=== PATIENT | female | born 1985 | race Caucasian/White ===

== ENCOUNTER 2024-10-10 11:02 | Emergency (ER) | payer BC, SELFPAY ==
[2024-10-10 11:10] VITALS: BP 157/90; PULSE 115; RESP 18; TEMP 36.8; O2SAT 99
--- OUTSIDE RECORDS SUMMARY | 2024-10-10 11:12 | XMS_ITS | Clinical Summary ---
Author Organization [facility] Address [address] [place] [address] Care Team Providers Care Circulation Librarian Name Role Phone Rafael Gil MD Primary Care Provider Source Comments [facility],non-owned Affiliates and Associated Physician Practices is amultiple site organization consisting of ambulatory clinics and hospital sitesin [place], [place] and [place]. This disclosure is being madepursuant to the Care Everywhere program and may not contain all information available regarding this patient. Last updated 18.[facility] [employer] Allergies No known active allergies Medications * Be aware that medications may not be up to date on this document. Alwaysverify current medications with the patient. ibuprofen (MOTRIN) 600 MG tablet Take 1 Tab by mouth every 6 hours as needed for Pain. 20 0 05/06/2009 Active norethindrone-et hinyl estradiol (ORTHO-NOVUM , 28,) 1-35 MG-MCG tablet Take 1 Tab by mouth 05/06/2010 Active Active Problems Problem Noted Date Diagnosed Date Abdominal pain, acute 05/06/2009 Immunizations Immunization Administration Dates Next Due TD (ADULT), 5 LF TETANUS TOXOID, ADSORBED, PF Social History Tobacco Use Types Packs/Day Years Used Date Smoking Tobacco: Every Day Cigarettes 1 10 Smokeless Tobacco: Never Tobacco Cessation:Counseling Given: No Alcohol Use Standard Drinks/Week Comments Yes 0 (1 standard drink = 0.6 oz pur e alcohol) rare Comments No Sex and Gender Information Value Date Recorded Sex Assigned at Not on file 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 Gender Identity Not on file Sexual Orientation Not on file Last Filed Vital Signs Vital Sign Reading Time Taken Comments Blood Pressure 165/102 12/22/2015 12:47 PM CDT Pulse 69 12/22/2015 12:22 PM CDT Temperature 37.1 C (98.7 F) 12/22/2015 12:22 PM CDT Respiratory Rate 16 12/22/2015 12:22 PM CDT Oxygen Saturation 100% 12/22/2015 12:22 PM CDT Inhaled Oxygen Concentration - - Weight 127 kg (280 lb) 12/22/2015 12:22 PM CDT Height 170.2 cm (5' 7 ) 12/22/2015 12:22 PM CDT Body Mass Index 43.85 12/22/2015 12:22 PM CDT Plan of Treatment Health Maintenance Due Date Last Done Comments HIV SCREENING 2001 HEPATITIS C SCREENING 03/24/2004 HEPATITIS B VACCINE (1 of 3 - 19+ 3-dose series) 2005 DTAP/TDAP/TD VACCINES (2 - Td or Tdap) 09/12/2022 09/12/2012 COVID-19 VACCINE ( - season) 2024 DEPRESSION SCREENING 05/24/2024 INFLUENZA VACCINE (Season Ended) 2025 03/13/2022, 02/27/2021, 01/31/2020, Additional history exists ZOSTER VACCINE (1 of 2) 2036 HIB VACCINE Aged Out No longer eligi ble based on patient's age to complete this topic HPV VACCINE Aged Out No longer eligi ble based on patient's age to complete this topic MENINGOCOCCAL (Group B) VACCINE SHARED DECISION-MAKING Aged Out No longer eligible based on patient's age to complete this topic MENINGOCOCCAL GROUPS A/C/Y/W VACCINE Aged Out No longer eligible based on patient's age to complete this topic PNEUMOCOCCAL VACCINE Aged Out No long er eligible based on patient's age to complete this topic Insurance [facility] [place] [address] Care Teams Circulation Librarian Relationship Specialty Start Date End Date Rafael Gil MD [address] [address] PCP - General 02/20/20
--- OUTSIDE RECORDS SUMMARY | 2024-10-10 11:12 | XMS_ITS | Data Portability ---
Author Organization [facility] Address [address] [place] [address] Care Team Providers Care V Belt Inspector Name Role Phone JENNY DAMON Primary Care Provider [phone] Assessment No assessment recorded. Plan of Treatment Reminders Order Date Submit Date Provider Last Modified By Organization Details Last Modified Time Details Appointments None recorded . Lab SARS CoV 2 RNA (COVID-1 9), QL, creel clerk-PCR, respirat ory specimen - [place] 2:00 2019 020 [facility] (Lab), [address] [place], [address], 0 16:50:52 lipid panel, serum 2017 018 [facility], [address], [place], [address], 8 13:11:19 CMP, serum or plasma 2017 018 [facility], [facility] [facility], [address], [place], [address], 8 13:11:18 TSH, ultra-se nsitive, serum 2017 018 [facility], [address] [facility], [address], [place], [address], 8 13:11:20 HbA1c (hemoglo bin A1c), blood 07/2017 Z[facility], [address] [facility], [address], [place], [address], 8 13:11:20 CBC 2017 ZAYDA [facility], [address], [address], [place], [address], 8 13:11:18 Referral physical therapy back referral 2017 ZAYDA [facility], [address] , [place], [address], 9 15:40:34 Procedures None recorded . Surgeries None recorded . Imaging None recorded . Medication Orders cycloben zaprine 10 mg tablet 2017 018 [id number], [address] [place], [address], 8 14:04:16 ibuprofe n 800 mg tablet 2017 018 [id number], [address] [place], [address], 8 14:04:16 Patient TargetsNo targets recorded. Patient Instructions Encounter Date Encounter Id Patient Instructions Last Modified By Organization Details Last Modified Time 12/07/2017 [id number] When You Want to Lose Weight: Care Instructions Not available 12/08/2017 10:37:38 low back pain: exercises Not available 12/07/2017 14:05:56 04/24/2020 [id number] 9 things to do i f you've been exposed to covid-19 Not available 04/24/2020 14:44:14 Reason for Referral Referring Physician: Jenny Damon, Family Medicine, Encounter Date: 12/07/2017 Results Created Date Observation Date Name Description Value Unit Range Abnormal Flag Note LastModifiedBy Organization Detail LastModifiedTime 05/01/20 20 05/01/2020 SARS CoV 2 RNA (COVI D-19) , QL, creel clerk-P CR, respi rator y speci men covid-19 positive Not Available [facility] (Lab) [address] [place], [address], 05/01/2020 16:50:35 12/08/19 18 12/08/2017 CMP, serum or plasm a glucose 112 mg/dL 65-99 above high normal Not Available [facility] ([facility]) [address] [place], [address], 12/08/2017 13:11:18 12/08/19 18 12/08/2017 CMP, serum or plasm a BUN 11 mg/dL 6-20 Not Available [facility] ([facility]) [address] [place], [address], 12/08/2017 13:11:18 12/08/19 18 12/08/2017 CMP, serum or plasm a creatinine 0.69 mg/dL 0.57-1 .00 Not Available [facility] ([facility]) [address] [place], [address], 12/08/2017 13:11:18 12/08/19 18 12/08/2017 CMP, serum or plasm a eGFR if nonafricn AM 116 mL/mi n/1.7 3 >59 Not Available [facility] ([facility]) [address] [place], [address], 12/08/2017 13:11:18 12/08/19 18 12/08/2017 CMP, serum or plasm a eGFR if africn AM 134 mL/mi n/1.7 3 >59 Not Available [facility] ([facility]) [address] [place], [address], 12/08/2017 13:11:18 12/08/19 18 12/08/2017 CMP, serum or plasm a BUN/creatini ne ratio 16 9-23 Not Available [facility] ([facility]) [address] [place], [address], 12/08/2017 13:11:18 12/08/19 18 12/08/2017 CMP, serum or plasm a sodium 140 mmol/ L 134-14 4 Not Available [facility] ([facility]) [address] [facility] [place], [address], 12/08/2017 13:11:18 12/08/19 18 12/08/2017 CMP, serum or plasm a potassium 4.1 mmol/ L 3.5-5. 2 Not Available [facility] ([facility]) [address] [facility] [place], [address], 12/08/2017 13:11:18 12/08/19 18 12/08/2017 CMP, serum or plasm a chloride 106 mmol/ L 96-106 Not Available [facility] ([facility]) [address] [place], [address], 12/08/2017 13:11:18 12/08/19 18 12/08/2017 CMP, serum or plasm a carbon dioxide, total 22 mmol/ L 20-29 Not Available [facility] ([facility]) [address] [facility] [place], [address], 12/08/2017 13:11:18 12/08/19 18 12/08/2017 CMP, serum or plasm a calcium 9.8 mg/dL 8.7-10 .2 Not Available [facility] ([facility]) [address] [place], [address], 12/08/2017 13:11:18 12/08/19 18 12/08/2017 CMP, serum or plasm a protein, total 7.4 g/dL 6.0-8. 5 Not Available [facility] ([facility]) [address] [place], [address], 12/08/2017 13:11:18 12/08/19 18 12/08/2017 CMP, serum or plasm a albumin 4.3 g/dL 3.5-5. 5 Not Available [facility] ([facility]) [address] [facility] [place], [address], 12/08/2017 13:11:18 12/08/19 18 12/08/2017 CMP, serum or plasm a globulin, total 3.1 g/dL 1.5-4. 5 Not Available [facility] ([facility]) [address] [facility] [place], [address], 12/08/2017 13:11:18 12/08/19 18 12/08/2017 CMP, serum or plasm a A/G ratio 1.4 1.2-2. 2 Not Available [facility] ([facility]) [address] [facility] [place], [address], 12/08/2017 13:11:18 12/08/19 18 12/08/2017 CMP, serum or plasm a bilirubin, total 0.2 mg/dL 0.0-1. 2 Not Available [facility] ([facility]) [address] [facility], [place], [address], 12/08/2017 13:11:18 12/08/19 18 12/08/2017 CMP, serum or plasm a alkaline phosphatase 82 IU/L 39-117 Not Available [facility] ([facility]) [address] [facility] [place], [address], 12/08/2017 13:11:18 12/08/19 18 12/08/2017 CMP, serum or plasm a AST (SGOT) 18 IU/L 0-40 Not Available [facility] ([facility]) [address] [facility] [place], [address], 12/08/2017 13:11:18 12/08/19 18 12/08/2017 CMP, serum or plasm a ALT (SGPT) 17 IU/L 0-32 Not Available [facility] ([facility]) [address] [facility] [place], [address], 12/08/2017 13:11:18 12/08/19 18 12/08/2017 CBC WBC 12.2 x10e3 /uL 3.4-10 .8 above high normal Not Available [facility] ([facility]) [address] [facility] [place], [address], 12/08/2017 13:11:18 12/08/19 18 12/08/2017 CBC RBC 4.81 x10e6 /uL 3.77-5 .28 Not Available [facility] ([facility]) [address] [facility] [place], [address], 12/08/2017 13:11:18 12/08/19 18 12/08/2017 CBC hemoglobin 14.5 g/dL 11.1-1 5.9 Not Available [facility] ([facility]) [address] [facility] [place], [address], 12/08/2017 13:11:18 12/08/19 18 12/08/2017 CBC hematocrit 41.9 % 34.0-4 6.6 Not Available [facility] ([facility]) [address] [facility] [place], [address], 12/08/2017 13:11:18 12/08/1912/08/2017 CBC MCV 87 fL 79-97 Not Available [facility] ([facility]) [address] [facility] [place], [address], 12/08/2017 13:11:18 12/08/19 18 12/08/2017 CBC MCH 30.1 pg 26.6-3 3.0 Not Available [facility] ([facility]) [address] [facility] [place], [address], 12/08/2017 13:11:18 12/08/19 18 12/08/2017 CBC MCHC 34.6 g/dL 31.5-3 5.7 Not Available [facility] ([facility]) [address] [facility] [place], [address], 12/08/2017 13:11:18 12/08/19 18 12/08/2017 CBC RDW 13.7 % 12.3-1 5.4 Not Available [facility] ([facility]) [address] [facility] [place], [address], 12/08/2017 13:11:18 12/08/19 18 12/08/2017 CBC platelets 288 x10e3 /uL 150-37 9 Not Available [facility] ([facility]) [address] [facility], [place], [address], 12/08/2017 13:11:18 12/08/19 18 12/08/2017 CBC NRBC FURNACE BRAZER Not Available [facility] ([facility]) [address] [facility] [place], [address], 12/08/2017 13:11:18 12/08/19 18 12/08/2017 lipid panel , serum cholesterol, total 179 mg/dL 100-19 9 Not Available [facility] ([facility]) [address] [place], [address], 12/08/2017 13:11:19 12/08/19 18 12/08/2017 lipid panel , serum triglyceride s 254 mg/dL 0-149 above high normal Not Available [facility] ([facility]) [address] [place], [address], 12/08/2017 13:11:19 12/08/19 18 12/08/2017 lipid panel , serum HDL cholesterol 35 mg/dL >39 below low normal Not Available [facility] ([facility]) [address] [place], [address], 12/08/2017 13:11:19 12/08/19 18 12/08/2017 lipid panel , serum VLDL cholesterol clarissa 51 mg/dL 5-40 above high normal Not Available [facility] ([facility]) [address] [facility] [place], [address], 12/08/2017 13:11:19 12/08/19 18 12/08/2017 lipid panel , serum LDL cholesterol calc 93 mg/dL 0-99 Not Available [facility] ([facility]) [address] [facility], [place], [address], 12/08/2017 13:11:19 12/08/19 18 12/08/2017 lipid panel , serum comment: FURNACE BRAZER Not Available [facility] ([facility]) [address] [facility], [place], [address], 12/08/2017 13:11:19 12/08/19 18 12/08/2017 lipid panel , serum T. chol/HDL ratio 5.1 ratio 0.0-4. 4 above high normal T. Chol/ HDL Ratio Men Women 1/2 Avg.R isk 3.4 3.3 Avg.R isk 5.0 4.4 2X Avg.R isk 9.6 7.1 3X Avg.R isk 23.4 11.0 Not Available [facility] ([facility]) [address] [facility], [place], [address], 12/08/2017 13:11:19 12/08/19 18 12/08/2017 HbA1c (hemo globi n A1c), blood hemoglobin A1C 5.8 % 4.8-5. 6 above high normal Pre-d iabet es: 5.7 - 6.4 Diabe angela: >6.4 Glyce laureen contr ol for adult s with diabe angela: <7.0 Not Available [facility] ([facility]) [address] [facility], [place], [address], 12/08/2017 13:11:19 12/08/19 18 12/08/2017 TSH, ultra -sens itive , serum TSH 1.270 uIU/m L 0.450- 4.500 Not Available [facility] ([facility]) [address] [place], [address], 12/08/2017 13:11:20 Result Notes None recorded. Problems Name Problem SNOMED Code Status Onset Date Resolution Date Notes Provider Name and Address Organization Details Recorded Time Low back pain 873091251 Active 2017 HERMELINDA Hanson Attn: Accountin g,[address], [place], [address], [facility] 8 14:12:57 Morbid obesity 259720993 Active 2017 HERMELINDA Hanson Attn: Maxx livingston,[address], [place], [address], [facility] 8 14:12:59 Elevated blood-pressure reading without diagnosis of hypertension 136933609 Active 2017 HERMELINDA Hanson Attn: Maxx livingston,[address], [place], [address], [facility] 8 14:13:03 Problem Notes None recorded. Procedures Surgical History Date Name Laterality Status Provider Name and Address Organization Details Recorded Time 02/27/20 15 Caesarean Section completed Nancy Garcia MA [facility] 12/07/2017 13:49:38 10/25/19 09 Caesarean Section completed Nancy Garcia MA [facility] 12/07/2017 13:49:27 05/24/19 04 Tonsillectomy completed Nancy Garcia MA [facility] 12/07/2017 13:49:08 Imaging Results None recorded. Procedure Notes None recorded. Medical Equipment None Reported. Allergies No known drug allergies Medications Name Sig Start Date Stop Date Status Note LastModified by Organization Details LastModified Time cyclobenzapri ne 10 mg tablet Take 1 tablet 3 times a day by oral route. active Not Available Not Available No t Available amoxicillin 500 mg capsule 12/07 completed Not Available Not Available Not Available promethazine- DM 6.25 mg-15 mg/5 mL oral syrup 12/07 completed Not Available Not Available Not Available ibuprofen 800 mg tablet Take 1 tablet 3 times a day by oral route as needed. active Not Available Not Available No t Available hydrocodone 5 mg-acetaminop hen 325 mg tablet 12/07 completed Not Available Not Available Not Available prednisone 20 mg tablet 12/07 completed Not Available Not Available Not Available amoxicillin 875 mg tablet 12/07 completed Not Available Not Available Not Available amoxicillin 875 mg-potassium clavulanate 125 mg tablet 12/07 completed Not Available Not Available Not Available Vitals Date Recorded Body height Body mass index (BMI) Body weight Heart rate Respiratory rate Systolic blood pressure Diastolic blood pressure Provider Name and Address Organization Details Last Updated DateTime 8 170.18 cm 45.9 kg/m2 612866. 96 g 84 /min 16 /min 136 mm[Hg] 88 mm[Hg] Nancy Garcia MA [facility] 8 13:51:04 Date Recorded Body height Body mass index (BMI) Body weight Heart rate Respiratory rate Body temperature Systolic blood pressure Diastolic blood pressure Provider Name and Address Organization Details Last Updated DateTime 8 170.18 cm 46.1 kg/m2 683675. 96 g 88 /min 16 /min 99.2 [degF] 118 mm[Hg] 82 mm[Hg] Nancy Garcia MA [facility] 8 14:21:25 Social History Question Answer Notes LastModified by Organizat ion Details LastModified Time Tobacco Smoking Status Current Every Day Smoker Nancy Garcia MA null, [facility] 12/07/2017 13:48:48 What Was The Date Of Your Most Recent Tobacco Screening? 12/07/2017 Information n ot available 12/15/2018 How Much Tobacco Do You Smoke? 1 PPD amcmanis Information not available 12/07/2017 Sex: Unknown Functional Status None recorded. Mental Status None recorded. Family History Nothing Reported. Medical History Condition Response Anxiety Disorder Y Muscle, Joint, or Bone Problems Y High Blood Pressure Y Depression Y Gynecological HistoryNo gynecological history recorded. Obstetrics History GPAL:G 0 P 0 0 0 0 Past Encounters Encounter ID Performer Location Encounter Start Date Encounter Closed Date Diagnosis/Indication Diagnosis SNOMED-CT Code Diagnosis ICD10 Code Diagnosis Note [id number] MD Uvaldo Li 14 IM [address] [facility] [place] [address] 12/07/2017 13:31:28 12/08/2017 16:44:24 Low back pain 923917114 M54.5 Counseled on back pain-Ice/h eat alternate to back. Ibuprofen/ Flexeril for pain/tight ness. Referral to PT-f/u after PT completed Morbid obesity 018623590 E66.01 Counseled on weight loss-encou rage heart healthy diet and increasing exercise-p ortion control, decreasing processed foods Elevated blood-pressure reading without diagnosis of hypertension 263892443 R03.0 Advised to monitor blood pressures goal <130/80 if consistent ly above goal Body mass index 40+ - severely obese 805519552 Z68.42 [id number] MD Uvaldo Li 14 IM 4 [facility] [address] [place] [address] 01/11/2018 14:09:10 01/12/2018 10:52:15 Elevated blood-pressure reading without diagnosis of hypertension 131565123 R03.0 Advised to monitor blood pressures goal <130/80 if consistent ly above goal call office-wnl today will continue to observe [id number] KAYY Quesada-ABIMAEL ramirez [address] [place] [address] 04/24/2020 14:06:41 04/25/2020 15:27:09 Exposure to SARS-CoV-2 921856927 Z20.828 Health Concerns Section Related Observation LastModified by Organization Detai ls LastModified Time None Recorded Concern Status LastModified by Organization Details LastModified Time None Recorded Advance Directives Directive None Recorded Payers Encounter Date Sequence Insurance Name Policy Number Policy Issa Covered Member ID Issa Member ID Guarantor Name 12/07/2017 1 [facility] (MEDICAID HMO) [id number] Ksenia Tristan [id number] Ksenia Tristan 01/11/2018 1 [facility] (MEDICAID HMO) [id number] Ksenia Tristan [id number] Ksenia Tristan 04/24/2020 1 [employer] (EPO) [id number] Sagar Prasad [id number] Ksenia Tristan Notes Date Note Type Note Provider Name and Address Organization Details Recorded Time 12/07/2017 text/html Back PainReporte d bypatient.Location: pain radiating to the foot(left) Quality:sharp Severity:worsening; moderate (5-7);interference with sleep;interference with work Duration:intermitte nt; chronic Onset/Timing:recurr ent episode Context:prior back problems; used medications for back pain Aggravating Factors:movement/po sitioning;twisting; flexing back;extending back Associated Symptoms:no fever; no weak limbs; no incontinence; no shortness of breath;numbness of the legs/feet(left 4-5th toes);tingling HERMELINDA Hanson Attn: Accounting[address] [place], [address], [facility] 12/08/2017 10:38:12 01/11/2018 text/html here to recheck bp-has felt better and back pain improved HERMELINDA Hanson Attn: Accounting[address] [place], [address], [facility] 01/11/2018 15:46:23 04/24/2020 text/html COVID-19 Symptom s September 2019Reported bypatient.Contacts and Exposureclose contact with a confirmed or suspected case of COVID-19; close proximity with person with COVID-19 OLIVER QuesadaP-BC Attn: Accounting[address] [place], [address], [facility] 04/24/2020 14:44:50 OBGyn Episode No OBEpisode recorded.
--- OUTSIDE RECORDS SUMMARY | 2024-10-10 11:12 | XMS_ITS | Clinical Summary ---
Author Organization [facility] Address [address] [place] [address] Phone Care Team Providers Care Parking Technician Name Role Phone Shon Mercedes MD Primary Care Provider [phone] Rohan La MD Unavailable Allergies No known active allergies Medications etonogestrel (NEXPLANON) 68 MG Implant by Subcutaneous route once. Active Blood Pressure Monitoring (Blood Pressure Cuff) MiscIndications: Primary hypertension Dispense battery-powered arm cuff. Dx: I10 1 Each 2 Active Blood Pressure Monitoring (Blood Pressure Cuff) [facility] Dispense large arm battery operated cuff. Dx: I10 1 Each 3 Active cloNIDine (CATAPRES) 0.1 MG Tablet Take one tablet twice a day as needed if blood pressure is 170/90 or higher 30 Tablet 5 Active lisinopril (PRINIVIL, ZESTRIL) 40 MG Tablet Take 1 Tablet by mouth daily. 90 Tablet 3 5 Active hydroCHLOROthiaz percy 25 MG Tablet Take 1 Tablet by mouth daily. 90 Tablet 3 5 Active Active Problems Problem Noted Date Diagnosed Date Skin lesion 02/15/2023 Noncompliance 02/15/2023 Lip lesion 03/13/2022 B12 deficiency 03/13/2022 Leukocytosis 03/13/2022 Primary hypertension 01/15/2022 Hyperglycemia 01/15/2022 Morbid obesity 01/15/2022 Chronic posterior anal fissure 03/27/2020 Rectal pain 02/28/2020 Fissure, anal 02/28/2020 MARK (obstructive sleep apnea) 02/22/2020 Impaired fasting glucose 02/05/2020 Dyslipidemia 02/05/2020 Vitamin D deficiency 02/05/2020 BMI 45.0-49.9, adult 01/31/2020 Tobacco abuse 01/31/2020 Immunizations Immunization Administration Dates Next Due Influenza Vaccine, Quadrivalent, PF 02/22,02/27/2021,01/31/2020,2018,02/28/2015 TDAP Vaccine 02/27/2015 Td Vaccine (preservative free) 09/12/2012 Td, Adsorbed, Preservative F ree, Adult Use, Lf Unspecified 09/12/2012 Family History Medical History Relation Name Comments Heart Attack Father Hypertension Father Leukemia/Lymphoma Father lymphoma Stroke Father Cancer Maternal Grandmother Lung Hypertension Mother No Known Problems Sister No Known Problems Son 1 No Known Problems Son 2 Relation Name Status Comments Father Maternal Grandfather Maternal Grandmother Mother Alive Paternal Grandfather Paternal Grandmother Sister Alive Son 1 Alive Son 2 Alive Social History Tobacco Use Types Packs/Day Years Used Date Smoking Tobacco: Former Cigarettes 0.3 23.8 1 - 12/15/2022 Smokeless Tobacco: Never Tobacco Cessation:Counseling Given: Not Answered Alcohol Use Standard Drinks/Week Comments Not Currently 0 (1 standard drink = 0.6 oz pur e alcohol) [facility] [employer] Answer Date Recorded In the past 12 months has [employer], gas, oil, or water [employer] threatened to shut off services in your home? No 06/07/2024 Social Connection and Isolat ion Panel [NHANES] Answer Date Recorded In a typical week, how many times do you talk on the phone with family, friends, or neighbors? Three times a week 06/07/2024 How often do you get togethe r with friends or relatives? Once a week 06/07/2024 How often do you attend chur ch or moravian services? Never 06/07/2024 Do you belong to any clubs o r organizations such as evangelical groups, unions, fraternal or athletic groups, or school groups? Yes 06/07/2024 How often do you attend meet ings of the clubs or organizations you belong to? More than 4 times per year 06/07/2024 Are you , , di vorced, , never , or living with a partner? 06/07/2024 AUDIT-C Answer Date Recorded Q1: How often do you have a drink containing alc ohol? 2-4 times a month 06/07/2024 Q2: How many drinks containi ng alcohol do you have on a typical day when you are drinking? 1 or 2 06/07/2024 Q3: How often do you have si x or more drinks on one occasion? Never 06/07/2024 Overall Financial Resource Strain (CARDIA) Answe r Date Recorded How hard is it for you to pa y for the very basics like food, housing, medical care, and heating? Somewhat hard 06/07/2024 PHQ-2 Answer Date Recorded Total Score - Questions 1-9 0 06/24 [facility] - Occupational Stress Questionnaire Answer Date Recorded Do you feel stress - tense, restless, nervous, or anxious, or unable to sleep at night because your mind is troubled all the time - these days? Very much 06/07/2024 Exercise Vital Sign Answer Date Recorde d On average, how many days pe r week do you engage in moderate to strenuous exercise (like a brisk walk)? 1 day 06/07/2024 On average, how many minutes do you engage in exercise at this level? 20 min 06/07/2024 Hunger Vital Sign Answer Date Recorded Within the past 12 months, y ou worried that your food would run out before you got the money to buy more. Never true Within the past 12 months, t he food you bought just didn't last and you didn't have money to get more. Sometimes true PRAPARE - Transportation Answer Date Re corded In the past 12 months, has l ack of transportation kept you from medical appointments or from getting medications? No 05/24 In the past 12 months, has l ack of transportation kept you from meetings, work, or from getting things needed for daily living? No 06/07/2024 Housing Stability Vital Sign Answer Matt e Recorded In the last 12 months, was t here a time when you were not able to pay the mortgage or rent on time? No 06/07/2024 In the past 12 months, how m any times have you moved where you were living? 0 06/07/2024 At any time in the past 12 m [facility], were you homeless or living in a mcc (including now)? No 06/07/2024 Education Answer Date Recorded What is the highest level of school you have completed or the highest degree you have received? Associate degree: occupational, technical, or vocational program 08/29/2021 Sexually Active Control Partners Comments Yes Implant Male Comments No Sex and Gender Information Value Date Recorded Sex Assigned at Not on file Legal Sex Female 7:49 AM CDT Gender Identity Not on file Sexual Orientation Not on file Last Filed Vital Signs Vital Sign Reading Time Taken Comments Blood Pressure 162/98 06/21/2024 1:29 PM [employer]AL [employer] Pulse 115 06/21/2024 1:29 PM [employer] Temperature 36.4 C (97.5 F) 06/21/2024 1:29 PM [employer]AL [employer] Respiratory Rate 20 06/21/2024 1:29 PM [employer]AL [employer] Oxygen Saturation 98% 06/21/2024 1:29 PM [employer] Inhaled Oxygen Concentration - - Weight 140.6 kg (310 lb) 06/21/2024 1:29 PM [employer]AL [employer] Height 170.2 cm (5' 7 ) 06/21/2024 1:29 PM [employer]AL [employer] Body Mass Index 48.55 06/21/2024 1:29 PM [employer]AL [employer]ATER Plan of Treatment Health Maintenance Due Date Last Done Comments Hepatitis C Virus (HCV) Screening 1986 Hepatitis B Immunization (1 of 3 - 19+ 3-dose series) 2005 Pap Smear 2007 Cervical Cancer Screening (CCS) 2016 HPV/Cotest 2016 SARS-COV-2 Immunization ( season) 2024 06/13/2021, 11/21/2020, 10/31/2020 Influenza Immunization (Season Ended) 2025 03/13/2022, 02/27/2021, 01/31/2020, Additional history exists Td Immunization Every 10 Years (Adults With 1 Tdap) 02/27/2025 02/27/2015, 09/12/2012 Respiratory Syncytial Virus (RSV) Immunization (Adult) (1 - 1-dose 75+ series) 2061 DTaP/Tdap/Td Immunization Discontinued 02/27/2015, Human Papillomavirus (HPV) Immunization Aged Out No longer eligible based on patient's age to complete this topic Meningococcal Immunization (ACWY) Aged Out No longer eligible based on patient's age to complete this topic Pneumococcal Immunization Combined Aged Out No longer eligible based on patient's age to complete this topic Rotavirus Immunization Aged Out No lo nger eligible based on patient's age to complete this topic Insurance Care Teams Parking Technician Relationship Specialty Start Date End Date Shon Mercedes MD #[address] [facility] [address] [place] [address] PCP - General Family Medicine 01/24/20 Rohan La MD #[address] [facility] [address] [place] [address] Consulting Physician Colon and Rectal Surgery 02/10/22
--- OUTSIDE RECORDS SUMMARY | 2024-10-10 11:12 | XMS_ITS | Encounter Summary ---
Author Organization [facility] Address [address] [place] [address] Phone Care Team Providers Care Screen Repairer Crusher Name Role Phone Shon Mercedes MD Primary Care Provider [phone] Negro Spencer APRN, ADY Unavailable Rohan La MD Unavailable Reason for Visit * Reason Comments Medication Refill Encounter Details Date Type Department Care Team (Late st Contact Info) Description 10/22/2021 Refill [facility] - Family Medicine - [place] [address] [place] [address] Shon Mercedes MD [address] [address] Medication Refill Social History Tobacco Use Types Packs/Day Years Used Date Smoking Tobacco: Every Day Cigarettes 0.3 25.6 Started: 02/27/1999 Smokeless Tobacco: Never Comments:6-7 a day Alcohol Use Standard Drinks/Week Comments Not Currently 0 (1 standard drink = 0.6 oz pur e alcohol) PHQ-2 Answer Date Recorded Total Score - Questions 1-9 0 06/24 Education Answer Date Recorded What is the highest level of school you have completed or the highest degree you have received? Associate degree: occupational, technical, or vocational program 08/29/2021 Sexually Active Control Partners Comments Yes Male Comments No Sex and Gender Information Value Date Recorded Sex Assigned at Not on file Legal Sex Female 7:49 AM CDT Gender Identity Not on file Sexual Orientation Not on file documented as of this encounter Miscellaneous Notes * Telephone Encounter - Maria R Vásquez RN - 10/22/2021 12:48 PM CDT Medication failed the protocol, provider to review and approve the medication order if appropriate. Requested Prescriptions Pending Prescriptions Disp Refills buPROPion SR (WELLBUTRIN SR) 150 MG TABLET SR 12 HR [Pharmacy Med Name: BUPROPION SR 150MG TABLETS (12 H)] 60 Tablet 2 Sig: TAKE 1 TABLET BY MOUTH TWICE DAILY Bupropion (6 Month Refill Only) Protocol Failed - 10/22/2021 12:36 PM Failed - Has an encounter in the past 6 months with a depression or anxiety visit diagnosis Passed - No test in the past 12 months or most recent test was negative Passed - No active on record Passed - Visit with relevant provider in past 6 months or upcoming 90 days Recent Visits Date Type Provider Dept 08/29/21 Office Visit Negro Spencer APRN, ADY [facility] 07/11/21 Office Visit Negro Spencer APRN, AD[facility] Showing recent visits within past 182 days and meeting all other requirements Future Appointments No visits were found meeting these conditions. Showing future appointments within next 90 days and meeting all other requirements Passed - Patient has established therapy with Bupropion for at least 6 months documented in this encounter Plan of Treatment Not on file documented as of this encounter Visit Diagnoses Diagnosis Tobacco abuse Tobacco use disorder documented in this encounter Additional Health Concerns Assessment Noted Time PHQ-9 Depression Total Score: 0 07/11/19 22 4:00 PM HABILITATION ASSISTANT documented as of this encounter Care Teams Screen Repairer Crusher Relationship Specialty Start Date End Date Shon Mercedes MD [address] [facility] [address] [address] PCP - General Family Medicine 01/24/20 Negro Spencer APRN, ADY #2 [facility] [address] [place] [address] Nurse Practitioner Advanced Practice Nurse 01/24/20 07/19/24 Rohan La MD #2 [facility] [address] [place] [address] Consulting Physician Colon and Rectal Surgery 02/10/22 documented as of this encounter
--- OUTSIDE RECORDS SUMMARY | 2024-10-10 11:12 | XMS_ITS | Encounter Summary ---
Author Organization [facility] Address [address] [place] [address] Phone Care Team Providers Care Photo Printer Name Role Phone Shon Mercedes MD Primary Care Provider [phone] Negro Spencer APRN, BIRDCAGE ASSEMBLER Unavailable Rohan La MD Unavailable Reason for Visit * Reason Comments Medication Refill Encounter Details Date Type Department Care Team (Late st Contact Info) Description 06/29/2021 Refill [facility] - Family Medicine - [place] [address] [place] [address] Negro Spencer, HARRIET, BIRDCAGE ASSEMBLER #[address] [address] Medication Refill Social History Tobacco Use Types Packs/Day Years Used Date Smoking Tobacco: Every Day Cigarettes 0.3 25.6 Started: 02/27/1999 Smokeless Tobacco: Never Comments:6-7 a day Alcohol Use Standard Drinks/Week Comments Not Currently 0 (1 standard drink = 0.6 oz pur e alcohol) PHQ-2 Answer Date Recorded Total Score - Questions 1-9 0 11/2020 Education Answer Date Recorded What is the highest level of school you have completed or the highest degree you have received? Some college, no degree 02/27/2020 Sexually Active Control Partners Comments Yes Male Comments No Sex and Gender Information Value Date Recorded Sex Assigned at Not on file Legal Sex Female 7:49 AM CDT Gender Identity Not on file Sexual Orientation Not on file documented as of this encounter Miscellaneous Notes * Telephone Encounter - Laura Topete RN - 06/30/2021 11:10 AM CST Medication failed the protocol, provider to review and approve the medication order if appropriate. Requested Prescriptions Pending Prescriptions Disp Refills buPROPion SR (WELLBUTRIN SR) 150 MG TABLET SR 12 HR [Pharmacy Med Name: BUPROPION SR 150MG TABLETS (12 H)] 60 Tablet 2 Sig: TAKE 1 TABLET BY MOUTH TWICE DAILY Bupropion (6 Month Refill Only) Protocol Failed - 06/29/2021 9:15 AM Failed - Has an encounter in the past 6 months with a depression or anxiety visit diagnosis Failed - Patient has established therapy with Bupropion for at least 6 months Passed - No test in the past 12 months or most recent test was negative Passed - No active on record Passed - Visit with relevant provider in past 6 months or upcoming 90 days Recent Visits Date Type Provider Dept 02/27/21 Office Visit Negro Spencer APRN, BIRDCAGE ASSEMBLER [facility] Showing recent visits within past 182 days and meeting all other requirements Future Appointments No visits were found meeting these conditions. Showing future appointments within next 90 days and meeting all other requirements O MANAGER documented in this encounter Plan of Treatment Not on file documented as of this encounter Visit Diagnoses Diagnosis Tobacco abuse Tobacco use disorder documented in this encounter Additional Health Concerns Infection Onset Date Last Indicated Resolved Time COVID - 19 07/11/2021 07/11/2021 07/31/2021 12:1 6 AM PHOTO MANAGER COVID - 19 08/29/2021 08/29/2021 09/18/2021 12:1 6 AM CDT Assessment Noted Time PHQ-9 Depression Total Score: 0 02/28/20 21 8:00 AM CDT documented as of this encounter Care Teams Photo Printer Relationship Specialty Start Date End Date Shon Mercedes MD #[address] [address] PCP - General Family Medicine 01/24/20 Negro Spencer APRN, BIRDCAGE ASSEMBLER #[address] [address] Nurse Practitioner Advanced Practice Nurse 01/24/20 07/19/24 Rohan La MD #[address] [address] Consulting Physician Colon and Rectal Surgery 02/10/22 documented as of this encounter
--- NOTE | 2024-10-10 11:48 | ED.GENADULT ---
HPI - General Adult General Chief complaint: Upper Respiratory Infection Stated complaint: flu symptoms Source: patient Mode of arrival: ambulatory Limitations: no limitations History of Present Illness HPI narrative: Patient presents for evaluation of sick symptoms. Symptom onset 4 days ago. She reports sore throat, cough, shortness of breath, headache, fever, otalgia and chills. No diarrhea. No recent sick contacts however her child now has similar symptoms. She took some OTC cold medication for her symptoms. Related Data Home Medications ?Medication ?Instructions ?Recorded ?Confirmed ?Last Taken ?Type hydrochlorothiazide 25 mg tablet mg 10/10/24 Unknown History lisinopril 10 tablet 10/10/24 Unknown History mg-hydrochlorothiazide 12.5 mg tablet Allergies Allergy/AdvReac Type Severity Reaction Status Date / Time No Known Allergies Allergy Unverified 07/23/18 13:51 Review of Systems Review of Systems: CONSTITUTIONAL: Reports fever and chills. EYES: Denies visual changes, redness, or discharge. ENT: Reports sore throat and bilateral otalgia. CARDIOVASCULAR: Denies chest pain, palpitations, or edema. RESPIRATORY: Reports cough and shortness of breath. GASTROINTESTINAL: Denies abdominal pain, nausea, vomiting, or diarrhea. GENITOURINARY: Denies dysuria or hematuria. SKIN: Denies rash or itching. MUSCULOSKELETAL: Denies back pain, joint pain, or myalgia. NEUROLOGIC: Reports headache. Denies numbness, dizziness, or weakness. PSYCHIATRIC: Denies anxiety or depression. PMFSH Past Medical History Medical History Hypertension Surgical History Surgical History No pertinent past surgical history Family History Family History Other Cerebrovascular accident Diabetes mellitus Hypertension Social History Social History Smoking status: Current every day smoker Tobacco type: e-cigarettes/vaping Alcohol intake: current Living arrangements: with family Gender identity (if verbalized by the patient): Female Spiritual care concerns: No Exam Narrative: GENERAL: Well-appearing, well-nourished, and in no acute distress. HEAD: Normocephalic, atraumatic. EYES: PERRLA and EOMI. ENT: Nares clear, no rhinorrhea or epistaxis. Mucous membranes moist. Oropharynx without tonsillar hypertrophy exudate or other lesions. Bilateral TMs pearly byrd nonbulging NECK: Supple. No adenopathy or masses. No carotid bruits or JVD CHEST: Cough present on exam. Clear to auscultation. No respiratory distress. No wheezes rales or rhonchi HEART: Regular rate and rhythm. No murmur heard. Normal peripheral pulses. ABDOMEN: Soft, nontender, nondistended, normal active bowel sounds. EXTREMITIES: Normal range of motion. No edema. SKIN: Warm, dry, no rash. NEURO: No focal deficits. Alert and oriented x3. PSYCH: Normal mood and affect. Course Course Emergency Course: This is a 39 yr old female who presented for evaluation of sick symptoms. COVID, flu and strep were all negative. Exam consistent with acute viral syndrome. No adventitious lung sounds warranting imaging. Increase fluids. Will dc with albuterol. Recommend Delsym for cough. Follow up with primary provider. Go to the ER for worsening symptoms. Pt in agreement with plan of care. Level of Care: Express Care Visit Vital Signs Vital signs: Vital Signs Temperature 36.8 C 10/10/24 11:10 Pulse Rate 115 H 10/10/24 11:10 Respiratory Rate 18 10/10/24 11:10 Blood Pressure 157/90 H 10/10/24 11:10 Pulse Oximetry 99 10/10/24 11:10 Oxygen Delivery Room Air 10/10/24 11:10 Temperature 36.8 C 10/10/24 11:10 Pulse Rate 115 H 10/10/24 11:10 Respiratory Rate 18 10/10/24 11:10 Blood Pressure 157/90 H 10/10/24 11:10 Pulse Oximetry 99 10/10/24 11:10 Oxygen Delivery Room Air 10/10/24 11:10 Medical Decision Making Vital Signs Vital Signs: Vital Signs Temperature 36.8 C 10/10/24 11:10 Pulse Rate 115 H 10/10/24 11:10 Respiratory Rate 18 10/10/24 11:10 Blood Pressure 157/90 H 10/10/24 11:10 Pulse Oximetry 99 10/10/24 11:10 Oxygen Delivery Room Air 10/10/24 11:10 Temperature 36.8 C 10/10/24 11:10 Pulse Rate 115 H 10/10/24 11:10 Respiratory Rate 18 10/10/24 11:10 Blood Pressure 157/90 H 10/10/24 11:10 Pulse Oximetry 99 10/10/24 11:10 Oxygen Delivery Room Air 10/10/24 11:10 Lab Data Labs: Lab Results 10/10/24 Range/Units 11:38 POC Influenza A Ag Negative (Negative) POC Influenza B Ag Negative (Negative) POC SARS CoV-2 Ag Negative (Negative) POC Grp A Strep Screen Negative (Negative) Discharge Plan Discharge Clinical Impression: Acute viral syndrome Patient Disposition: Home Condition: Stable Instructions: Antibiotic Form, Upper Respiratory Infection (ED), Viral Syndrome (ED) Additional Instructions: DEXTROMETHORPHAN(DELSYM) SHOULD HELP WITH YOUR COUGH INCREASE FLUID INTAKE Patient Language: Tamazight Prescriptions: New albuterol sulfate [Ventolin HFA] 90 mcg/actuation HFA aerosol inhaler 2 puff inhalation QID Qty: 8.5 0RF No Action hydrochlorothiazide 25 mg tablet lisinopril-hydrochlorothiazide 10-12.5 mg tablet Follow-up/Referrals: Mago,Shon Ybarra MD [Primary Care Provider] - Time of Disposition: 12:06
[2024-10-10 11:57] LABS: EDCOVIDSCREEN Negative (Negative); EDINFLUASCREEN Negative (Negative); EDINFLUBSCREEN Negative (Negative); EDSTREPNEGPOS1 Negative (Negative)
== END 2024-10-10 12:11 | disposition home or self-care (01) ==
PROVIDERS: Emergency Provider Nurse Practitioner; PCP Family Medicine
DX: B34.9 Viral infection, unspecified (principal); I10 Essential (primary) hypertension; Z20.822 Contact with and (suspected) exposure to COVID-19
CPT/HCPCS: 87081; 87426; 87804; 87880; 99213; G0463